=== PATIENT | female | born 1995 | race Caucasian/White ===

== ENCOUNTER 2016-07-16 14:41 | Emergency (ER) | payer OTHER ==
[2016-07-16 15:10] LABS: Appearance,Urine Cloudy (Clear); Bacteria,Urine Rare /hpf; Bilirubin,Urine Negative (Negative); Glucose,Urine (UA) Negative (Negative); Ketones,Urine Negative (Negative); Leukocyte Esterase,Urine Negative (Negative); Mucus,Urine Occasional /hpf; Nitrite,Urine Negative (Negative); PH, Urine 5.5 (5.0-8.0); Particle Count 4287; Protein,Urine Negative (Negative); RBC,Urine <1 /hpf (0-5); Specific Gravity,Urine 1.017 (1.001-1.035); Squamous Epithelial Cell,Urine 7 /hpf (0-4); UA Billing (MACRO vs. MICRO) MICRO; Urobilinogen,Urine <2.0 mg/dL (<2.0); WBC,Urine 1 /hpf (0-5)
--- NOTE | 2016-07-16 15:13 | ED ---
Abdominal Pain HPI - General Chief Complaint: Abdominal Pain Stated Complaint: abd pain (early ) Time Seen by Provider: 07/16/16 14:53 Source: patient, RN notes reviewed Mode of arrival: ambulatory Limitations: no limitations - History of Present Illness Initial Comments: 21-year-old female presented emergency Department chief complaint of positive test. Patient states that she took 3 tests at home and states that she started having some mild lower abdominal pain. Patient did admit to dysuria and urinary frequency. Denies any vaginal bleeding vaginal discharge. Patient states that her CABLE ENGINEER is Dr. Kirkland. Patient states that she recently had her implanon removed patient is A0. Patient denies any nausea, vomiting diarrhea constipation. Denies any other complaints. - Related Data Home Medications Medication Instructions Recorded Confirmed No Known Home Medications [No 01/11/15 07/16/16 Known Home Medications] Allergies Allergy/AdvReac Type Severity Reaction Status Date / Time No Known Allergies Allergy Verified 07/16/16 15:04 Review of Systems ROS Statement: Those systems with pertinent positive or pertinent negative responses have been documented in the HPI. ROS Other: All systems not noted in ROS Statement are negative. Past Medical History Past Medical History: No Reported History History of Any Multi-Drug Resistant Organisms: None Reported Past Surgical History: No Surgical Hx Reported Past Psychological History: No Psychological Hx Reported Smoking Status: Current every day smoker Past Alcohol Use History: None Reported Past Drug Use History: None Reported - Past Family History Mother Additional Family Medical History / Comment(s): degenerative disc disease in spine General Exam Limitations: no limitations General appearance: alert, in no apparent distress Respiratory exam: Present: normal lung sounds bilaterally. Absent: respiratory distress, wheezes, rales, rhonchi, stridor Cardiovascular Exam: Present: regular rate, normal rhythm, normal heart sounds. Absent: systolic murmur, diastolic murmur, rubs, gallop, clicks GI/Abdominal exam: Present: soft, tenderness (Minimal suprapubic), normal bowel sounds. Absent: distended, guarding, rebound, rigid Back exam: Absent: CVA tenderness (R), CVA tenderness (L) Neurological exam: Present: alert, oriented X3, CN II-XII intact Psychiatric exam: Present: normal affect, normal mood Course Vital Signs 07/16/16 14:49 Temperature 99.5 F Pulse Rate 96 Respiratory 16 Rate Blood Pressure 99/55 O2 Sat by Pulse 98 Oximetry Medical Decision Making - Medical Decision Making 21-year-old female presented emergency department for abdominal pain. Patient states she had positive at home. Patient's ultrasound shows no acute abnormality, there is gestational sac noted no some chronic bleed a heart rate this time. Patient follow-up with her CABLE ENGINEER Dr. Kirkland. Return parameters discussed. Urinalysis does not show any evidence of infection. Patient's abdomen is nontender at this time. - Lab Data Lab Results 07/16/16 07/16/16 Range/Units 15:00 15:00 Urine Color Yellow Urine Appearance Cloudy H (Clear) Urine pH 5.5 (5.0-8.0) Ur Specific [place] 1.017 (1.001-1.035) Urine Protein Negative (Negative) Urine Glucose (UA) Negative (Negative) Urine Ketones Negative (Negative) Urine Blood Negative (Negative) Urine Nitrite Negative (Negative) Urine Bilirubin Negative (Negative) Urine Urobilinogen <2.0 (<2.0) mg/dL Ur Leukocyte Esterase Negative (Negative) Urine RBC <1 (0-5) /hpf Urine WBC 1 (0-5) /hpf Ur Squamous Epith Cells 7 H (0-4) /hpf Urine Bacteria Rare H (None) /hpf Urine Mucus Occasional H (None) /hpf Urine HCG, Qual Detected (Not Detectd) Disposition Clinical Impression: Abdominal pain during Disposition: HOME SELF-CARE Condition: Stable Instructions: Abdominal Pain in (ED) Additional Instructions: Follow-up with your CABLE ENGINEER as discussed.Please return to the Emergency Department if symptoms worsen or any other concerns. Referrals: None,Stated [Primary Care Provider] - 1-2 days Steven Littlejohn DO [Doctor of Osteopathic Medicine] - 1-2 days Time of Disposition: 15:48
[2016-07-16 15:47] VITALS: BP 101/50; PULSE 94; RESP 18; TEMP 98.3
--- NOTE | 2016-07-16 16:06 | US ---
EXAMINATION TYPE: US OB <=14 wks transvag DATE OF EXAM: 07/16/2016 3:26 PM COMPARISON: No previous CLINICAL HISTORY: Pain. Right pelvic pain x 1 week EXAM PERFORMED: Transvaginal (TV) and Transabdominal (TA) endovaginal scanning performed for better evaluation of the uterus, grayscale and color Doppler imaging performed. EXAM MEASUREMENTS: GESTATIONAL AGE / DATING Physician Established: Not established yet Dates by LMP: (6 weeks/5 days) EDC: 03/06/2017 Dates by First Scan: This is 1st scan Dates by Current Scan for: No pole seen at this time MATERNAL ANATOMY Uterus: 8.7 x 3.6 x 5.3cm, anteverted Right Ovary: 3.3 x 2.2 x 2.0cm Left Ovary: 3.7 x 2.2 x 1.9cm, 2.3 x 1.5 x 1.7cm cystic area Post CDS / Adnexa: free fluid in posterior cul-de-sac Presence of free fluid: yes Presence of corpus luteal cyst: not seen at this time Presence of subchorionic bleed: 1.4 x 0.5 x 1.6cm hypoechoic area superior to gestational sac GESTATION / SURVEY No pole seen at this time MSD: 0.7cm Yolk Sac (normal less than 6mm): 1.6mm Date of LMP: 05/30/2016 Beta HcG (if available): Not available at time of exam No pole seen at this time, 0.7cm gestational sac-like structure within fundal portion of endome trium with what appears to be a yolk sac within, 1.6cm hypoechoic area superior to gestational sac, p robable subchorionic bleed, free fluid within posterior cul-de-sac IMPRESSION: Findings may represent an early gestation, there is a subchorionic hemorrhage suspected. Consider shantel rt interval follow-up. Left ovarian cyst, some free fluid in the pelvis
== END 2016-07-16 16:05 | disposition home or self-care (01) ==
LOC: EC 14:41
DX: O26.891 Other specified pregnancy related conditions, first trimester (principal); O99.331 Smoking (tobacco) complicating pregnancy, first trimester; R10.30 Lower abdominal pain, unspecified; R30.0 Dysuria; F17.200 Nicotine dependence, unspecified, uncomplicated; Z3A.00 Weeks of gestation of pregnancy not specified
CPT/HCPCS: 76801; 76817; 81001; 81025; 99284

== ENCOUNTER → 2016-10-14 | Outpatient (CLI) | payer OTHER ==
[2016-10-14 16:22] LABS: CH 30.7; CHCM 33.4; HCT 36.1 % (34.0-46.0); HDW 2.01; HGB 12.2 gm/dL (11.4-16.0); MCH 31.4 pg (25.0-35.0); MCHC 33.9 g/dL (31.0-37.0); MCV 92.5 fL (80.0-100.0); Mean Platelet Volume 7.6; RDW 13.7 % (11.5-15.5); WBC 11.1 k/uL (3.8-10.6)
[2016-10-14 16:35] LABS: Glucose 81 mg/dL (74-99); Non-African American GFR(MDRD) >60 (>60 ml/min/1.73 sqM)
[2016-10-14 17:07] LABS: Hepatitis B Surface Ag Index 0.05
[2016-10-15 01:04] LABS: Treponemal Ab Non-Reactive (Non-Reactive)
[2016-10-15 06:39] LABS: Toxoplasma Antibody (IgG) <3.0 IU/mL (<7.2)
[2016-10-17 09:54] LABS: Alpha Fetoprotein 32.9 ng/mL; B-HCG (M.O.M.) 1.56; Gestational Age (days) 5; Inhibin A (M.O.M.) 1.37; Interpretation SeeBelow; Maternal Age at EDD (Yrs) 22; Smoker Yes; Unconjugated Estriol (M.O.M.) 1.47
== END ==
LOC: LABWHC1 15:48
PROVIDERS: ATTEND Obstetrics & Gynecology
DX: O26.812 Pregnancy related exhaustion and fatigue, second trimester (principal); Z3A.00 Weeks of gestation of pregnancy not specified
CPT/HCPCS: 36415; 82105; 82565; 82677; 82947; 84702; 85027; 86336; 86762; 86777; 86778; 86780; 86850; 86900; 86901; 87340; 87390

== ENCOUNTER → 2016-12-22 | Outpatient (CLI) | payer OTHER ==
[2016-12-22 17:14] LABS: CH 31.1; CHCM 31.5; HGB 11.8 gm/dL (11.4-16.0); MCH 31.8 pg (25.0-35.0); MCV 99.3 fL (80.0-100.0); Mean Platelet Volume 8.2; RBC 3.72 m/uL (3.80-5.40); RDW 12.6 % (11.5-15.5); WBC 16.9 k/uL (3.8-10.6)
== END | disposition home or self-care (01) ==
LOC: LABWHC1 12:34
PROVIDERS: ATTEND Obstetrics & Gynecology
DX: Z34.82 Encounter for supervision of other normal pregnancy, second trimester (principal); Z3A.00 Weeks of gestation of pregnancy not specified
CPT/HCPCS: 36415; 82950; 85027

== ENCOUNTER 2018-10-03 23:56 | Emergency (ER) | payer OTHER ==
[2018-10-04 00:07] VITALS: BP 121/76; PULSE 101; RESP 18; TEMP 98.6
[2018-10-04] MEDS ORDERED: IBUPROFEN 600 MG TAB PO STA (00:58)
[2018-10-04] MEDS ORDERED: ACET/COD 300 MG/30 MG STARTER PACK 6 TAB BTL PO STA (00:59)
--- NOTE | 2018-10-04 01:00 | ED ---
Upper Extremity HPI - General Chief Complaint: Extremity Injury, Upper Stated Complaint: Hand Injury Time Seen by Provider: 10/04/18 00:09 Source: patient Mode of arrival: ambulatory Limitations: no limitations - History of Present Illness Initial Comments: This patient is 23-year-old woman who presents to be evaluated for right hand pain and swelling. Patient states that tonight she punched a tree. She felt a popping feeling in then also noticed that she was having moderate swelling of the right hand. She has aching pain that is worse if she tries to move her hand. No weakness or numbness. She has noticed the pain is only minimally better if she older hand still. No previous surgery or injury. MD Complaint: Injury to:: right, hand -: hour(s) Handedness: right Place: outdoors Improves With: immobilization Worsens With: movement of extremity Context: direct blow Associated Symptoms: heard/felt popping sensat - Related Data Previous Rx's Medication Instructions Recorded Ibuprofen [Motrin] 600 mg PO Q6HR PRN #30 tab 03/16/17 Acetaminophen-Codeine 300-30mg 1 tab PO Q4H PRN #20 tablet 10/04/18 [Tylenol w/codeine #3] Allergies Allergy/AdvReac Type Severity Reaction Status Date / Time No Known Allergies Allergy Verified 10/04/18 00:07 Review of Systems ROS Statement: Those systems with pertinent positive or pertinent negative responses have been documented in the HPI. ROS Other: All systems not noted in ROS Statement are negative. Musculoskeletal: Reports: as per HPI, joint swelling, arthralgia Skin: Denies: lesions Neurological: Denies: weakness, numbness, paresthesias Past Medical History Past Medical History: No Reported History History of Any Multi-Drug Resistant Organisms: None Reported Past Surgical History: No Surgical Hx Reported Past Anesthesia/Blood Transfusion Reactions: No Reported Reaction Past Psychological History: Anxiety Smoking Status: Current every day smoker Past Alcohol Use History: None Reported Past Drug Use History: None Reported - Past Family History Mother Additional Family Medical History / Comment(s): degenerative disc disease in spine General Exam Limitations: no limitations General appearance: alert, in no apparent distress Cardiovascular Exam: Present: other (Radial and ulnar pulses are normal. Normal capillary refill throughout the right hand.) Right Elbow exam: Present: normal inspection, full ROM. Absent: tenderness, swelling Forearm Wrist exam: Present: normal inspection, full ROM. Absent: tenderness, swelling Hand Wrist exam: Present: tenderness, swelling, ecchymosis, deformity, other (There is soft tissue swelling over the fourth and fifth metacarpals. Tenderness of the fifth metacarpal and deformity.). Absent: abrasion, laceration, dislocation, erythema, amputation, nail avulsion, subungual hematoma Neuro motor exam: Present: wrist extension intact, thumb opposition intact, thumb IP flexion intact, thumb adduction intact, fingers 2-5 abduction intact Vascular: Present: normal capillary refill Neurological exam: Present: other (No sensory deficit or weakness throughout the right and). Absent: motor sensory deficit Skin exam: Present: warm, dry, intact, normal color. Absent: rash Course Vital Signs 10/04/18 00:04 Temperature 98.6 F Pulse Rate 101 H Respiratory 18 Rate Blood Pressure 121/76 O2 Sat by Pulse 98 Oximetry Procedures - Orthopedic Splinting/Casting Injury #1 Side: right Upper Extremity Injury Location: hand Upper Extremity Immobilizer: ulnar gutter Disposition Clinical Impression: Metacarpal bone fracture Disposition: HOME SELF-CARE Condition: Good Instructions (If sedation given, give patient instructions): Hand Fracture (ED) Prescriptions: Acetaminophen-Codeine 300-30mg [Tylenol w/codeine #3] 1 tab PO Q4H PRN #20 tablet PRN Reason: Pain Is patient prescribed a controlled substance at d/c from ED?: Yes When asked, does pt state using other controlled substances?: No If prescribed controlled substance>3 days was MAPS reviewed?: Prescribed <3 Days If opioid is for acute pain is fill amount 7 days or less?: Yes If Rx opioid, was Start Talking consent form obtained?: Yes Referrals: None,Stated [Primary Care Provider] - 1-2 days Jae Galdamez, DO [Medical Doctor] - 1-2 days
--- NOTE | 2018-10-04 01:23 | XR ---
EXAM: XR Right Hand Complete, 3 or More Views CLINICAL HISTORY: ITS.REASON XR Reason: Pain TECHNIQUE: Frontal, lateral and oblique views of the right hand. COMPARISON: None available FINDINGS: Bones/joints: Fracture involving distal fifth metacarpal with mild radial displacement and volar angulation of distal fracture fragment. No other fracture or dislocation. Soft tissues: No radiopaque foreign bodies. IMPRESSION: Mildly displaced and angulated fifth metacarpal fracture.
== END 2018-10-04 01:49 | disposition home or self-care (01) ==
LOC: EC 23:56
DX: S62.336A Displaced fracture of neck of fifth metacarpal bone, right hand, initial encounter for closed fracture (principal); F17.200 Nicotine dependence, unspecified, uncomplicated; W22.8XXA Striking against or struck by other objects, initial encounter
CPT/HCPCS: 99283

== ENCOUNTER 2019-04-26 12:10 | Emergency (ER) | payer OTHER ==
[2019-04-26] MEDS ORDERED: ACET/COD 300 MG/30 MG STARTER PACK 6 TAB BTL PO STA (12:56)
[2019-04-26] MEDS ORDERED: KETOROLAC 30 MG/ML 1 ML VIAL IM STA (12:56)
--- NOTE | 2019-04-26 13:01 | ED ---
General Adult HPI - General Chief complaint: Dental/Oral Stated complaint: Tooth pain Time Seen by Provider: 04/26/19 12:37 Source: patient, RN notes reviewed Mode of arrival: ambulatory Limitations: no limitations - History of Present Illness Initial comments: 24-year-old female without any significant past medical history presents to the emergency department for a chief complaint of dental pain. This started a couple days ago. Patient states that she has not seen a dentist. States she does not follow with a dentist at this time. Patient denies fevers or chills. Patient denies any ALLERGIES. Denies any swelling under the tongue. Denies any trismus or difficulty swallowing. Denies neck pain or stiffness.Patient has no other complaints at this time including shortness of breath, chest pain, abdominal pain, nausea or vomiting, headache, or visual changes. - Related Data Previous Rx's Medication Instructions Recorded Ibuprofen [Motrin] 600 mg PO Q6HR PRN #30 tab 03/16/17 Acetaminophen-Codeine 300-30mg 1 tab PO Q4H PRN #20 tablet 10/04/18 [Tylenol w/codeine #3] Penicillin V Potassium [Pen Vee K] 500 mg PO Q6H 10 Days #40 tablet 04/26/19 Allergies Allergy/AdvReac Type Severity Reaction Status Date / Time No Known Allergies Allergy Verified 04/26/19 12:11 Review of Systems ROS Statement: Those systems with pertinent positive or pertinent negative responses have been documented in the HPI. ROS Other: All systems not noted in ROS Statement are negative. Past Medical History Past Medical History: No Reported History History of Any Multi-Drug Resistant Organisms: None Reported Past Surgical History: No Surgical Hx Reported Past Anesthesia/Blood Transfusion Reactions: No Reported Reaction Past Psychological History: Anxiety Smoking Status: Current every day smoker Past Alcohol Use History: None Reported Past Drug Use History: None Reported - Past Family History Mother Additional Family Medical History / Comment(s): degenerative disc disease in spine General Exam Limitations: no limitations General appearance: alert, in no apparent distress Head exam: Present: atraumatic, normocephalic, normal inspection Eye exam: Present: normal appearance, PERRL, EOMI. Absent: scleral icterus, conjunctival injection, periorbital swelling ENT exam: Present: normal exam, mucous membranes moist, TM's normal bilaterally, normal external ear exam. Absent: normal oropharynx (fracture of tooth 16, no dental abscess present), other (no sublingual edema) Neck exam: Present: normal inspection, full ROM. Absent: tenderness, meningismus, lymphadenopathy Respiratory exam: Present: normal lung sounds bilaterally. Absent: respiratory distress, wheezes, rales, rhonchi, stridor Cardiovascular Exam: Present: regular rate, normal rhythm, normal heart sounds. Absent: systolic murmur, diastolic murmur, rubs, gallop, clicks Neurological exam: Present: alert Course Vital Signs 04/26/19 12:11 Temperature 98.6 F Pulse Rate 114 H Respiratory 18 Rate Blood Pressure 115/59 O2 Sat by Pulse 99 Oximetry Medical Decision Making - Medical Decision Making Patient has had dental pain for the past 3 days. There is a fracture of tooth 16. Generally poor dentition. There is no edema or erythema noted of the right face. There is no dental abscess palpated. Vitals are stable and patient is afebrile. Patient requesting something for pain. Patient will follow up with a dentist in 1-2 days. She will return here if he has any worsening symptoms. Disposition Clinical Impression: Pain, dental Disposition: HOME SELF-CARE Condition: Good Instructions (If sedation given, give patient instructions): Toothache (ED) Additional Instructions: Take Motrin and Tylenol for pain. If pain is severe take Tylenol 3. Do not drive or operate machinery while taking Tylenol 3. Take antibiotic as directed. Follow up with dentist in 1-2 days or return if you have any worsening symptoms. [facility] Address: [address] [place] [address] Prescriptions: Penicillin V Potassium [Pen Vee K] 500 mg PO Q6H 10 Days #40 tablet Is patient prescribed a controlled substance at d/c from ED?: No Referrals: Ross Funez MD [REFERRING] - 1-2 days Time of Disposition: 12:59
[2019-04-26 13:14] VITALS: BP 118/61; PULSE 96; RESP 20; TEMP 98.4
== END 2019-04-26 13:13 | disposition home or self-care (01) ==
LOC: EC 12:10
DX: S02.5XXA Fracture of tooth (traumatic), initial encounter for closed fracture (principal); F17.200 Nicotine dependence, unspecified, uncomplicated; X58.XXXA Exposure to other specified factors, initial encounter
CPT/HCPCS: 99283; 96372; J1885

== ENCOUNTER 2019-05-09 16:13 | Emergency (ER) | payer OTHER ==
[2019-05-09 16:23] VITALS: TEMP 98.5
[2019-05-09 17:27] VITALS: RESP 20
[2019-05-09 17:48] LABS: Appearance,Urine Cloudy (Clear); Bilirubin,Urine Negative (Negative); Blood,Urine Negative (Negative); Color,Urine Yellow; Glucose,Urine (UA) Negative (Negative); Ketones,Urine Negative (Negative); Leukocyte Esterase,Urine Negative (Negative); Mucus,Urine Occasional /hpf; Nitrite,Urine Negative (Negative); PH, Urine 5.5 (5.0-8.0); Protein,Urine Negative (Negative); RBC,Urine <1 /hpf (0-5); Specific Gravity,Urine 1.022 (1.001-1.035); Squamous Epithelial Cell,Urine 8 /hpf (0-4); Urobilinogen,Urine <2.0 mg/dL (<2.0); WBC,Urine 1 /hpf (0-5)
--- NOTE | 2019-05-09 18:38 | ED ---
Abdominal Pain HPI - General Chief Complaint: Abdominal Pain Stated Complaint: Abd pain Time Seen by Provider: 05/09/19 16:29 Source: patient, RN notes reviewed, old records reviewed Mode of arrival: ambulatory Limitations: no limitations - History of Present Illness Initial Comments: Patient is a [age] female presents emergency department today with some lower abdominal cramping. She states that she is one week late for her menstrual cycle is concern for possible . Patient denies any vaginal discharge. She denies any concern for STD. Patient states that she's had no fevers or chills nausea or vomiting. - Related Data Previous Rx's Medication Instructions Recorded Ibuprofen [Motrin] 600 mg PO Q6HR PRN #30 tab 03/16/17 Acetaminophen-Codeine 300-30mg 1 tab PO Q4H PRN #20 tablet 10/04/18 [Tylenol w/codeine #3] Penicillin V Potassium [Pen Vee K] 500 mg PO Q6H 10 Days #40 tablet 04/26/19 Allergies Allergy/AdvReac Type Severity Reaction Status Date / Time No Known Allergies Allergy Verified 04/26/19 12:11 Review of Systems ROS Statement: Those systems with pertinent positive or pertinent negative responses have been documented in the HPI. ROS Other: All systems not noted in ROS Statement are negative. Past Medical History Past Medical History: No Reported History History of Any Multi-Drug Resistant Organisms: None Reported Past Surgical History: No Surgical Hx Reported Past Anesthesia/Blood Transfusion Reactions: No Reported Reaction Past Psychological History: Anxiety Smoking Status: Current every day smoker Past Alcohol Use History: None Reported Past Drug Use History: None Reported - Past Family History Mother Additional Family Medical History / Comment(s): degenerative disc disease in spine General Exam - General Exam Comments Initial Comments: 24-year-old female. Alert and oriented. No significant distress. General: Well appearing, well nourished, in no distress. Oriented x 3, normal mood and affect . Ambulating without difficulty. Skin: Good turgor, no rash, unusual bruising or prominent lesions Hair: Normal texture and distribution. HEENT: Head: Normocephalic, atraumatic, no visible or palpable masses, depressions, or scaring. Eyes: Visual acuity intact, conjunctiva clear, sclera non-icteric, EOM intact, PERRL. Ears: EACs clear, TMs translucent & cone of light visualized. hearing intact. Nose: No external lesions, mucosa non-inflamed, septum and turbinates normal Mouth: Mucous membranes moist, no mucosal lesions. Teeth/Gums: No obvious caries or periodontal disease. No gingival inflammation or significant resorption. Pharynx: Mucosa non-inflamed, no tonsillar hypertrophy or exudate Neck: Supple, without lesions, bruits, or adenopathy, thyroid non-enlarged and non-tender Heart: No cardiomegaly or thrills; regular rate and rhythm, no murmur or gallop Lungs: Clear to auscultation and percussion Abdomen: Bowel sounds normal, no tenderness, organomegaly, masses, or hernia Back: Spine normal without deformity or tenderness, no CVA tenderness Extremities: No amputations or deformities, cyanosis, edema or varicosities, peripheral pulses intact Musculoskeletal: Normal gait and station. No misalignment, asymmetry, crepitation, defects, tenderness, masses, effusions, decreased range of motion, instability, atrophy or abnormal strength or tone in the head, neck, spine, ribs, pelvis or extremities. Neurologic: CN 2-12 normal. Sensation to pain, touch, and proprioception normal. DTRs normal in upper and lower extremities. No pathologic reflexes. Pelvic: Vagina and cervix without lesions or discharge. Uterus and adnexa/parametria nontender without masses. Limitations: no limitations Course Vital Signs 05/09/19 05/09/19 05/09/19 16:20 16:22 17:22 Temperature 98.5 F Pulse Rate 123 H 95 Respiratory 18 20 20 Rate Blood Pressure 115/78 118/80 O2 Sat by Pulse 98 99 Oximetry 05/09/19 05/09/19 18:22 18:49 Temperature Pulse Rate 89 Respiratory 20 20 Rate Blood Pressure 120/79 O2 Sat by Pulse 99 Oximetry Medical Decision Making - Medical Decision Making 24-year-old female presents today for lower abdominal pain, one week late for her menstrual periods concern for . Pelvic exam is unremarkable. Patient has no significant abdominal tenderness. Patient's hCG levels are n egative tested and negative. Discussed will still test for STDs and Patient can follow-up with her [employer]PER[employer]. She has some upcoming appointment in 2 weeks to discuss starting on control. Discussed the importance of this and safe sex practices. - Lab Data Lab Results 05/09/19 05/09/19 05/09/19 Range/Units 17:18 17:18 17:18 HCG, Quant mIU/mL Urine Color Yellow Urine Appearance Cloudy H (Clear) Urine pH 5.5 (5.0-8.0) Ur Specific [place] 1.022 (1.001-1.035) Urine Protein Negative (Negative) Urine Glucose (UA) Negative (Negative) Urine Ketones Negative (Negative) Urine Blood Negative (Negative) Urine Nitrite Negative (Negative) Urine Bilirubin Negative (Negative) Urine Urobilinogen <2.0 (<2.0) mg/dL Ur Leukocyte Esterase Negative (Negative) Urine RBC <1 (0-5) /hpf Urine WBC 1 (0-5) /hpf Ur Squamous Epith Cells 8 H (0-4) /hpf Urine Mucus Occasional H (None) /hpf Urine HCG, Qual Not Detected (Not Detectd) Trichomonas Ag (Rapid) Negative (Negative) 05/09/19 Range/Units 17:18 HCG, Quant <2.4 mIU/mL Urine Color Urine Appearance (Clear) Urine pH (5.0-8.0) Ur Specific [place] (1.001-1.035) Urine Protein (Negative) Urine Glucose (UA) (Negative) Urine Ketones (Negative) Urine Blood (Negative) Urine Nitrite (Negative) Urine Bilirubin (Negative) Urine Urobilinogen (<2.0) mg/dL Ur Leukocyte Esterase (Negative) Urine RBC (0-5) /hpf Urine WBC (0-5) /hpf Ur Squamous Epith Cells (0-4) /hpf Urine Mucus (None) /hpf Urine HCG, Qual (Not Detectd) Trichomonas Ag (Rapid) (Negative) Disposition Clinical Impression: Not currently , Abdominal pain Disposition: HOME SELF-CARE Condition: Good Instructions (If sedation given, give patient instructions): Abdominal Pain (ED) Additional Instructions: Please use medication as discussed as Motrin or Tylenol for pain. Follow-up with [employer].. Please follow up with family doctor if symptoms have not improved over the next two days. Please return to the emergency room if your symptoms i ncrease or worsen or for any other concerns. Is patient prescribed a controlled substance at d/c from ED?: No Referrals: None,Stated [Primary Care Provider] - 1-2 days Time of Disposition: 18:38
[2019-05-09 18:48] VITALS: BP 120/79; PULSE 89
[2019-05-11 09:19] LABS: C. trachomatis,PCR Negative (Neg,Equiv); Chlamydia trachomatis Source Vagina
[2019-05-11 09:22] LABS: N. gonorrhoeae,PCR Negative (Neg,Equiv); Neisseria Source Vagina
== END 2019-05-09 18:50 | disposition home or self-care (01) ==
LOC: EC 16:13
DX: R10.30 Lower abdominal pain, unspecified (principal); F17.200 Nicotine dependence, unspecified, uncomplicated
CPT/HCPCS: 36415; 81001; 81025; 84702; 87070; 87491; 87591; 87808; 99284

== ENCOUNTER → 2019-07-10 | Outpatient (CLI) | payer OTHER | END | disposition home or self-care (01) | LOC: LABWHC1 11:40 | PROVIDERS: ATTEND Obstetrics & Gynecology | DX: O00.90 Unspecified ectopic pregnancy without intrauterine pregnancy (principal) | CPT/HCPCS: 36415; 84702 ==

== ENCOUNTER → 2019-07-12 | Outpatient (CLI) | payer OTHER | END | disposition home or self-care (01) | LOC: LABMAIN 12:21 | PROVIDERS: ATTEND Obstetrics & Gynecology | DX: O20.0 Threatened abortion (principal) | CPT/HCPCS: 36415; 84702 ==

== ENCOUNTER → 2019-07-15 | Outpatient (CLI) | payer OTHER | END | disposition home or self-care (01) | LOC: LABWHC1 11:07 | PROVIDERS: ATTEND Obstetrics & Gynecology | DX: O00.90 Unspecified ectopic pregnancy without intrauterine pregnancy (principal) | CPT/HCPCS: 36415; 84702 ==

== ENCOUNTER 2020-06-29 17:10 | Emergency (ER) | payer OTHER ==
--- NOTE | 2020-06-29 18:06 | ED ---
Medical Decision Making - Medical Decision Making Medical screening exam: 25-year-old female presents to the emergency department for right great toe pain. Patient has had worsening redness and drainage from the lateral portion of the medial lateral toe. Patient was pressing on the toe and there was some drainage of pus. Patient is on control she does not think she is . She is In the emergency department because she has a friend that had an infection of the toe that became a bone infection. On physical exam patient has erythema and redness to the right lateral toe with mild drainage, site is tender to palpation. (Camron De Jesus) Disposition Is patient prescribed a controlled substance at d/c from ED?: No Clinical Impression: Chronic hip pain, Paronychia Disposition: HOME SELF-CARE Condition: Good Instructions (If sedation given, give patient instructions): Paronychia (ED) Additional Instructions: Please take antibiotic as directed. Do warm soapy soaks. If symptoms are worsening return to the emergency room. Otherwise follow-up with primary care. Follow up with orthopedics for your hip pain, take Motrin and Tylenol. Prescriptions: Sulfamethox-Tmp 800-160Mg [Bactrim DS 800-160 mg] 1 tab PO Q12HR #20 tab Cephalexin [Keflex] 500 mg PO Q6HR 10 Days #40 cap Referrals: Jt Arriaga DO [Doctor of Osteopathic Medicine] - 1-2 days Jose Alberto Bowens [STAFF PHYSICIAN] - 1-2 days
[2020-06-29 18:07] VITALS: BP 129/88; PULSE 101; RESP 16; TEMP 98.9
--- NOTE | 2020-06-29 18:56 | XR ---
EXAMINATION TYPE: XR Hip Complete RT DATE OF EXAM: 06/29/2020 COMPARISON: NONE HISTORY: Right hip pain TECHNIQUE: 2 views FINDINGS: I see no fracture nor dislocation. Joint spaces are normal. There is no sign of hip dysplas ia. Sacroiliac joint is intact. IMPRESSION: Negative right hip exam.
--- NOTE | 2020-06-29 18:58 | XR ---
EXAMINATION TYPE: XR toes RT DATE OF EXAM: 06/29/2020 COMPARISON: NONE HISTORY: Swelling and drainage. TECHNIQUE: 3 views FINDINGS: I see no fracture nor dislocation. Joint spaces are fairly normal. There are no erosions. IMPRESSION: Negative right big toe exam. No focal bone destruction.
[2020-06-29] MEDS ORDERED: SULFAMETH-TMP DS STARTER PACK 2 TAB BTL PO STA (19:39)
[2020-06-29] MEDS ORDERED: LIDOCAINE 1% INJ 10MG/ML (20 ML MDV) SQ ONE (19:39)
[2020-06-29] MEDS ORDERED: CEPHALEXIN 500MG STARTER PACK 4 CAP BTL PO STA (19:39)
[2020-06-29] MEDS ORDERED: KETOROLAC 15 MG/ML 1 ML VIAL IVP STA (19:40)
--- NOTE | 2020-06-29 19:52 | ED ---
General Adult HPI - General Chief complaint: Extremity Injury, Lower Stated complaint: Toe pain Time Seen by Provider: 06/29/20 19:34 Source: patient, RN notes reviewed Mode of arrival: ambulatory Limitations: no limitations - History of Present Illness Initial comments: 25-year-old female presents to the emergency room for a chief complaint of right great toe drainage. Patient reports this started a couple days ago. States that it is worse on the medial aspect of the right great toe. States that she noticed drainage from that area. Patient states it is very tender to press on the medial aspect. Patient also relates of right hip pain 60 years. Patient states she fell down stairs to 6 years ago and her right hip has been hurting ever since. States the past 2 months have been worse. Patient is requesting Toradol. Patient denies any bladder or bowel changes, saddle anesthesia, weakness of the legs, or pain radiating down the legs. Denies fevers. Patient states she is able to walk on the right hip.Patient has no other complaints at this time including shortness of breath, chest pain, abdominal pain, nausea or vomiting, headache, or visual changes. - Related Data Previous Rx's Medication Instructions Recorded Ibuprofen [Motrin] 600 mg PO Q6HR PRN #30 tab 03/16/17 Acetaminophen-Codeine 300-30mg 1 tab PO Q4H PRN #20 tablet 10/04/18 [Tylenol w/codeine #3] Penicillin V Potassium [Pen Vee K] 500 mg PO Q6H 10 Days #40 tablet 04/26/19 Cephalexin [Keflex] 500 mg PO Q6HR 10 Days #40 cap 06/29/20 Sulfamethox-Tmp 800-160Mg [Bactrim 1 tab PO Q12HR #20 tab 06/29/20 DS 800-160 mg] Allergies Allergy/AdvReac Type Severity Reaction Status Date / Time No Known Allergies Allergy Verified 06/29/20 18:07 Review of Systems ROS Statement: Those systems with pertinent positive or pertinent negative responses have been documented in the HPI. ROS Other: All systems not noted in ROS Statement are negative. Past Medical History Past Medical History: No Reported History History of Any Multi-Drug Resistant Organisms: None Reported Past Surgical History: No Surgical Hx Reported Past Anesthesia/Blood Transfusion Reactions: No Reported Reaction Past Psychological History: Anxiety Smoking Status: Vaper Past Alcohol Use History: None Reported Past Drug Use History: None Reported - Past Family History Mother Additional Family Medical History / Comment(s): degenerative disc disease in spine General Exam - General Exam Comments Initial Comments: Patient has 90 flexion of the right hip with extension to a new 4 position. DP pulse 2+. Capillary refill less than 2 seconds. No erythema or edema of the right hip. Patient also has edema and erythema and tenderness of the right great toe worse along the medial aspect of the nail fold. There is purulent drainage slightly in this area. plantar aspect of the great toe is soft, no e vidence of felon. Limitations: no limitations General appearance: alert, in no apparent distress Head exam: Present: atraumatic, normocephalic, normal inspection Eye exam: Present: normal appearance, PERRL, EOMI. Absent: scleral icterus, conjunctival injection, periorbital swelling ENT exam: Present: normal exam, mucous membranes moist Neck exam: Present: normal inspection, full ROM. Absent: tenderness, meningismus, lymphadenopathy Respiratory exam: Present: normal lung sounds bilaterally. Absent: respiratory distress, wheezes, rales, rhonchi, stridor Cardiovascular Exam: Present: regular rate, normal rhythm, normal heart sounds. Absent: systolic murmur, diastolic murmur, rubs, gallop, clicks GI/Abdominal exam: Present: soft, normal bowel sounds. Absent: distended, tenderness, guarding, rebound, rigid Course Vital Signs 06/29/20 18:03 Temperature 98.9 F Pulse Rate 101 H Respiratory 16 Rate Blood Pressure 129/88 O2 Sat by Pulse 98 Oximetry Procedures - Incision & Drainage Consent Obtained: verbal consent Indication: paronychia Site: other (toe) Anesthetic Used: lidocaine 1% Amount (mLs): 3 I&D Cleaning Method: Chloroprep Sterile Field Used?: Yes Scalpel Used: #11 (18G) I&D Drainage Obtained: Pus, Blood Patient Tolerated Procedure: well, no complications Medical Decision Making - Medical Decision Making X-ray of the toe and hip are negative. Patient does have evidence of paronychia. Patient adamantly denies any chance of . Patient requesting Toradol for this pain, this was given to her. I did incise and drain the right great toe. Minimal purulent drainage, some blood. Patient was started on Keflex and Bactrim. Discussed doing warm soapy soaks. Discussed follow-up with primary care. If she has worsening symptoms batista ch as streaking redness she will return to the emergency room. Disposition Clinical Impression: Chronic hip pain, Paronychia Disposition: HOME SELF-CARE Condition: Good Instructions (If sedation given, give patient instructions): Paronychia (ED) Additional Instructions: Please take antibiotic as directed. Do warm soapy soaks. If symptoms are worsening return to the emergency room. Otherwise follow-up with primary care. Follow up with orthopedics for your hip pain, take Motrin and Tylenol. Prescriptions: Sulfamethox-Tmp 800-160Mg [Bactrim DS 800-160 mg] 1 tab PO Q12HR #20 tab Cephalexin [Keflex] 500 mg PO Q6HR 10 Days #40 cap Is patient prescribed a controlled substance at d/c from ED?: No Referrals: Jt Arriaga DO [Doctor of Osteopathic Medicine] - 1-2 days Jose Alberto Bowens [STAFF PHYSICIAN] - 1-2 days Time of Disposition: 19:49
== END 2020-06-29 21:12 | disposition home or self-care (01) ==
LOC: EC 17:10
DX: L03.031 Cellulitis of right toe (principal); G89.29 Other chronic pain; M25.551 Pain in right hip; F17.210 Nicotine dependence, cigarettes, uncomplicated; F41.9 Anxiety disorder, unspecified
CPT/HCPCS: 73502; 73660; 99283; 96374; 10060; J2001; J1885

== ENCOUNTER 2020-11-05 11:53 | Emergency (ER) | payer OTHER ==
[2020-11-05] MEDS ORDERED: IBUPROFEN 600 MG TAB PO STA (12:01)
[2020-11-05] MEDS ORDERED: ACETAMINOPHEN TAB 500 MG TAB PO STA (12:01)
--- NOTE | 2020-11-05 12:20 | ED ---
General Adult HPI - General Chief complaint: Upper Respiratory Infection Stated complaint: Covid sypmtoms Time Seen by Provider: 11/05/20 12:00 Source: patient Mode of arrival: ambulatory Limitations: no limitations - History of Present Illness Initial comments: 25-year-old female presents to emergency Department with chief complaint of Covid symptoms. Patient reports she's been experiencing symptoms over the last 3 days which include sore throat, nonproductive cough, fevers and chills. States she has been taking Tylenol Motrin at home. Patient reports occasionally using a vape. States she was exposed to her was recently discharged from work due to having very similar symptoms. However, he has not been tested. She denies any nausea vomiting or diarrhea. She denies any chest pain. - Related Data Home Medications Medication Instructions Recorded Confirmed No Known Home Medications 11/05/20 11/05/20 Allergies Allergy/AdvReac Type Severity Reaction Status Date / Time No Known Allergies Allergy Verified 11/05/20 12:47 Review of Systems ROS Statement: Those systems with pertinent positive or pertinent negative responses have been documented in the HPI. ROS Other: All systems not noted in ROS Statement are negative. Past Medical History Past Medical History: No Reported History History of Any Multi-Drug Resistant Organisms: None Reported Past Surgical History: No Surgical Hx Reported Past Anesthesia/Blood Transfusion Reactions: No Reported Reaction Past Psychological History: Anxiety Smoking Status: Current every day smoker, Vaper Past Alcohol Use History: None Reported Past Drug Use History: None Reported - Past Family History Mother Additional Family Medical History / Comment(s): degenerative disc disease in spine General Exam Limitations: no limitations General appearance: alert, in no apparent distress Head exam: Present: atraumatic, normocephalic, normal inspection Eye exam: Present: normal appearance, PERRL, EOMI Pupils: Present: normal accommodation ENT exam: Present: normal exam, normal oropharynx, mucous membranes moist Neck exam: Present: normal inspection, full ROM. Absent: tenderness, lymphade nopathy Respiratory exam: Present: normal lung sounds bilaterally. Absent: respiratory distress Cardiovascular Exam: Present: regular rate, normal rhythm, normal heart sounds. Absent: systolic murmur Extremities exam: Present: normal inspection, full ROM, normal capillary refill. Absent: tenderness Back exam: Present: normal inspection, full ROM. Absent: tenderness Neurological exam: Present: alert, oriented X3 Psychiatric exam: Present: normal affect, normal mood Skin exam: Present: warm, dry, intact, normal color Course Vital Signs 11/05/20 11/05/20 11:56 12:20 Temperature 102.1 F H Pulse Rate 122 H Respiratory 20 20 Rate Blood Pressure 98/65 O2 Sat by Pulse 100 Oximetry Medical Decision Making - Medical Decision Making 25-year-old female presents to emergency Department with chief complaint of Covid symptoms. On physical examination, her lungs are clear to auscultation. She is febrile and tachycardic. She tested positive for Covid. X-rays are negative. Patient was given Tylenol and Motrin. This helped improve her symptoms. Patient was also given a monoclonal antibody. Patient was observed afterward. She feels comfortable to go home. Return parameters were discussed with patient is an attending agreeable. Covid protocol discussed. Case discussed with physician. - Lab Data Lab Results 11/05/20 Range/Units 12:16 Coronavirus (PCR) Detected A (Not Detectd) Disposition Clinical Impression: COVID-19 Disposition: HOME SELF-CARE Condition: Stable Instructions (If sedation given, give patient instructions): Coronavirus Disease 2019 (COVID-19) Additional Instructions: Follow covid Protocol. Return to emergency department if symptoms worsen. Is patient prescribed a controlled substance at d/c from ED?: No Referrals: None,Stated [Primary Care Provider] - 1-2 days Time of Disposition: 14:21
--- NOTE | 2020-11-05 12:50 | XR ---
EXAMINATION TYPE: XR chest 1V portable DATE OF EXAM: 11/05/2020 COMPARISON: Chest x-ray June 04, 2012 HISTORY: Cough and shortness of breath TECHNIQUE: Single frontal portable view of the chest is obtained. FINDINGS: There is no suspicious new focal air space opacity, pleural effusion, or pneumothorax seen . The cardiac silhouette size remains within normal limits. The osseous structures are intact. Jameel ateral metallic nipple ornaments are incidentally noted. IMPRESSION: No suspicious acute pulmonary process.
[2020-11-05] MEDS ORDERED: SODIUM CHLORIDE 0.9% 50 ML IVPB ONE (13:45)
[2020-11-05] MEDS ORDERED: CASIRIVIMAB (REGN10933) (EUA) 600 MG, IMDEVIMAB (REGN10987) (EUA) 600 MG in SODIUM CHLO... IVPB ONE (14:00)
[2020-11-05 14:27] VITALS: RESP 18; TEMP 99.3
[2020-11-05 15:47] VITALS: BP 138/84; PULSE 72
== END 2020-11-05 15:47 | disposition home or self-care (01) ==
LOC: EC 11:53
DX: U07.1 COVID-19 (principal); F17.290 Nicotine dependence, other tobacco product, uncomplicated
CPT/HCPCS: 71045; 87635; 96365; 99283

== ENCOUNTER → 2021-05-14 | Outpatient (CLI) | payer OTHER ==
--- NOTE | 2021-05-14 13:10 | US ---
EXAMINATION TYPE: Transabdominal DATE OF EXAM: 05/14/2021 12:48 PM COMPARISON: NONE CLINICAL HISTORY: Z36.89 confirm dates. and viability; ; smoker (vapes) EXAM PERFORMED: TA US EXAM MEASUREMENTS: GESTATIONAL AGE / DATING Physician Established: Not yet established Dates by LMP: LMP unknown Dates by First Scan: No previous here Dates by Current Scan for: gestational sac and yolk sac seen MATERNAL ANATOMY Uterus: 11.3 x 6.5 x 5.7cm Right Ovary: 3.0 x 2.8 x 1.0cm Left Ovary: 2.2 x 1.9 x 1.2cm Post CDS / Adnexa: wnl Presence of free fluid: no Presence of corpus luteal cyst: no Presence of subchorionic bleed: no GESTATION / SURVEY CRL: No pole is seen, only small hyperechoic focus in mid gestational sac is noted and may repr esent blighted ovum MSD: 3.9cm (9 weeks/4 days); irregular gestational sac appearance Yolk Sac (normal less than 6mm): 4.7mm Date of LMP: unknown Beta HcG (if available): NA, patient having blood work now after US Single, irregular gestational sac and yolk sac is seen = 9 weeks/ 4 days. IMPRESSION: 1. Irregular gestational sac place this gestation at an estimated 9 weeks 4 days. 2. pole and cardiac activity are not identified. Consider blighted ovum. Correlate with beta h CG.
== END | disposition home or self-care (01) ==
LOC: RADUSWWP 12:28
PROVIDERS: ATTEND Obstetrics & Gynecology
DX: O99.331 Smoking (tobacco) complicating pregnancy, first trimester (principal); Z3A.09 9 weeks gestation of pregnancy; F17.290 Nicotine dependence, other tobacco product, uncomplicated
CPT/HCPCS: 76801

== ENCOUNTER → 2021-06-01 | Outpatient (CLI) | payer OTHER | END | disposition home or self-care (01) | LOC: LABMAIN 16:51 | PROVIDERS: ATTEND Obstetrics & Gynecology | DX: Z53.9 Procedure and treatment not carried out, unspecified reason (principal) ==

== ENCOUNTER 2021-06-02 11:19 | Day surgery (SDC) | payer OTHER ==
[2021-06-01 09:24] VITALS: BMI 23.1
--- NOTE | 2021-06-01 12:57 | P.HPOB ---
History of Present Illness H&P Date: 06/01/21 Chief Complaint: Missed This patient is a pleasant 26 yr female estimated gestational age 9 weeks who presents for suction D&C due to persistent missed . Patient was initially seen at the end of April for care. She began having some bleeding and ultrasounds have show an intrauterine with no cardiac activity. She initially wanted to wait and have a spontaneous miscarriage, however despite several weeks this has not happened. She now is requesting D&C for treatment. Review of Systems Genitourinary: Reports as per HPI Past Medical History Past Medical History: No Reported History History of Any Multi-Drug Resistant Organisms: None Reported Past Surgical History: No Surgical Hx Reported Additional Past Surgical History / Comment(s): [place] teeth extracted. Past Anesthesia/Blood Transfusion Reactions: No Reported Reaction Past Psychological History: No Psychological Hx Reported Smoking Status: Current every day smoker, Vaper Past Alcohol Use History: None Reported Past Drug Use History: None Reported - Past Family History Mother Family Medical History: Musculoskeletal Disorder Additional Family Medical History / Comment(s): Degenerative disc disease in spine. Medications and Allergies Home Medications Medication Instructions Recorded Confirmed Type No Known Home Medications 11/05/20 06/01/21 History Allergies Allergy/AdvReac Type Severity Reaction Status Date / Time No Known Allergies Allergy Verified 06/01/21 10:33 Exam Intake and Output 05/31/21 06/01/21 06/01/21 22:59 06:59 14:59 Other: Weight 63.957 kg - OBG Physical Exam Abdomen: bowel sounds normal, no diffuse tenderness, no bruit present, no guarding noted, no hepatomegaly, no splenomegaly, no mass Vulva: both: normal Vagina: normal moisture, no discharge Results Blood type is Rh positive. Ultrasound shows a non-viable , 9 weeks. Assessment and Plan Assessment: This is a 26 yr female with ~9week missed requesting suction D&C for treatment. She and I discussed the procedure and risks: infection, bleeding, possible uterine perforation. All of her questions answered and a written consent obtained. (1) Missed Status: Acute Code(s): O02.1 - MISSED SNOMED Code(s): 98006592
[~2021-06-02 11:19] MED LIST: DEXAMETHASONE SOD PHOSPHATE 4 MG/ML 1 ML VIAL IV ONE; HYDROmorphone 0.5 MG/0.5 ML SYRINGE IVP PRN; LACTATED RINGERS 1,000 ML IV SCH; ONDANSETRON 4 MG/2 ML VIAL IVP ONE; Pre Op ABX Message 1 EACH MISC MISCELLANE ONE
[2021-06-02] MEDS ORDERED: PROPOFOL 10 MG/ML 20 ML VIAL IV ONE (12:13)
[2021-06-02] MEDS ORDERED: LIDOCAINE 1% INJ 10MG/ML (20 ML MDV) ONE (12:13)
[2021-06-02] MEDS ORDERED: KETOROLAC 15 MG/ML 1 ML VIAL ONE (12:13)
[2021-06-02] MEDS ORDERED: MIDAZOLAM 2 MG/2 ML VIAL ONE (12:13)
[2021-06-02] MEDS ORDERED: fentaNYL (PF) 50 MCG/ML 2 ML AMP ONE (12:13)
--- NOTE | 2021-06-02 12:59 | P.OP ---
Date of Procedure: 06/02/21 Preoperative Diagnosis: Missed 9 weeks Postoperative Diagnosis: Same Procedure(s) Performed: Suction D&C. Anesthesia: MAC Surgeon: Hal Benavides Estimated Blood Loss (ml): 600 Pathology: other (Uterine contents) Condition: stable Disposition: PACU Indications for Procedure: Please see dictated H&P for intimate details of this patient's admission. Brief summary this is a pleasant 26-year-old 4 para 2 female estimated gestational age approximately 9 weeks who's had serial ultrasounds showing nonviable consistent with 9 weeks. Patiently initially wanted to wait was carried on her own however despite prolonged waiting she is not passed any tissue. She's now requesting suction D&C for treatment. Patient understands risks of this procedure including risks of infection, bleeding, possible uterine perforation. All the patient's questions are answered written consent obtained Operative Findings: This patient had a large amount of products of conception. Description of Procedure: This patient is taken to the operating room where she is laid in the supine position. She subsequently undergoes general mask anesthesia without incident. With an adequate level of anesthesia she's placed in the dorsal lithotomy position. Examination under anesthesia shows a mid position uterus approximately 10 weeks size. She has a vaginal perineal prep and drape. The bladder is drained for 25 mL of clear urine. Weighted speculum was placed in the posterior vagina. Cervix is then grasped with an Allis clamp. Gentle dilation is done to allow a 8 curved suction curette easily and the uterine cavi ty. Immediately upon placing at there is brisk bleeding. Multiple passes are made and a generous amount of tissue is removed. I then gently place a curette into the uterine cavity and it feels like there is still tissue there are so I placed a 9 curved suction curette and again multiple passes are made and another large piece of tissue is removed. At this time a final gentle 4 quadrant curettage is done and no further tissue was noted and at this time the uterus firms up and the bleeding subsides. There was quite brisk bleeding throughout the procedure and estimated blood loss was approximately 600 mL. I'm confident however that all the tissue was removed. It just appears that she had a large amount of tissue in the uterine cavity. With this done, the Allis clamp and weighted speculum removed. All counts are correct 3. No complications. Patient is awakened from anesthesia and taken recovery room in satisfactory condition
[2021-06-02 13:00] VITALS: TEMP 98
[2021-06-02 13:43] VITALS: RESP 18
[2021-06-02] MEDS ORDERED: HYDROcodone/APAP 5-325MG 1 EACH TAB ONE (14:00)
[2021-06-02] MEDS ORDERED: HYDROcodone/APAP 5-325MG 1 EACH TAB PO ONE (14:01)
[2021-06-02 14:04] VITALS: BP 125/70; PULSE 89
== END 2021-06-02 14:31 | disposition home or self-care (01) ==
LOC: OR 11:19
PROVIDERS: ATTEND Obstetrics & Gynecology
DX: O02.1 Missed abortion (principal); F17.290 Nicotine dependence, other tobacco product, uncomplicated; Z82.69 Family history of other diseases of the musculoskeletal system and connective tissue; Z79.1 Long term (current) use of non-steroidal anti-inflammatories (NSAID)
CPT/HCPCS: 86900; 86901; 88305; 86850; 59820; J2250; J1100; J2405; J2001; J3010; J1885; J2704; J1170

== ENCOUNTER 2023-12-09 06:00 | Inpatient (IN) | payer OTHER ==
[2023-12-09] MEDS ORDERED: CARBOPROST TROMETHAMINE 250 MCG/ML 1 ML AMP IM PRN (06:30)
[2023-12-09] MEDS ORDERED: miSOPROStoL 200 MCG TAB RECTAL PRN (06:30)
[2023-12-09] MEDS ORDERED: LIDOCAINE 0.5% (PF) 5 MG/ML (50 ML SDV) SQ PRN (06:30)
[2023-12-09] MEDS ORDERED: TRANEXAMIC 1,000 MG/100ML-NACL 1,000 MG in EMPTY BAG 1 BAG IV PRN (06:30)
[2023-12-09] MEDS ORDERED: METHYLERGONOVINE 0.2 MG/ML 1 ML AMP IM PRN (06:30)
[2023-12-09] MEDS ORDERED: miSOPROStoL 200 MCG TAB PO PRN (06:30)
[2023-12-09] MEDS ORDERED: TERBUTALINE 1 MG/ML VIAL SQ PRN (06:30)
[2023-12-09] MEDS ORDERED: OXYTOCIN 10 UNIT/ML 1 ML VIAL IM PRN (06:30)
[2023-12-09] MEDS: LACTATED RINGERS 1,000 ML IV SCH (06:42)
[2023-12-09 07:07] LABS: Basophils # (A) 0.1 k/uL (0-0.2); Basophils % (A) 0 %; Eosinophils # (A) 0.1 k/uL (0-0.7); Eosinophils % (A) 1 %; HCT 37.3 % (34.0-46.0); HGB 12.2 gm/dL (11.4-16.0); Hypochromasia Slight; Lymphocytes # (A) 2.3 k/uL (1.0-4.8); Lymphocytes % (A) 21 %; MCHC 32.6 g/dL (31.0-37.0); MCV 88.8 fL (80.0-100.0); Mean Platelet Volume 9.2; Monocytes # (A) 0.5 k/uL (0-1.0); Monocytes % (A) 5 %; Neutrophils # (A) 7.7 k/uL (1.3-7.7); Neutrophils % (A) 71 %; Platelet Count 232 k/uL (150-450); RDW 14.5 % (11.5-15.5); WBC 10.8 k/uL (3.8-10.6)
[2023-12-09] MEDS: OXYTOCIN 30 UNITS/500 ML NS 30 UNIT in SALINE 1 500ML.BAG IV SCH (07:28)
--- NOTE | 2023-12-09 08:23 | P.HPOB ---
History of Present Illness H&P Date: 12/09/23 Chief Complaint: induction of labor Ms. Sánchez is a 28 year old at 39 weeks and 0 days with EDC of 12/16/2023 who presents for elective induction of labor. The has been complicated by limited care. The patient does live 1 hour away in the [facility]. The patient did have a recent growth US at 36 weeks with the fetus measuring average for gestational age and shown to be in cephalic presentation. Obstetric history: 3 FTVD, shoulder dystocia with last delivery with that baby being her largest at 9#7oz. 2 SABs. work-up: blood type O positive, antibody screen negative, rubella non- immune, VDRL non-reactive, HBsAg negative, HIV negative, HCV negative, gonorrhea negative, chlamydia negative, GBS negative, 1 hour GTT wnl. Past Medical History Past Medical History: No Reported History History of Any Multi-Drug Resistant Organisms: None Reported Past Surgical History: No Surgical Hx Reported Additional Past Surgical History / Comment(s): [place] teeth extracted, d&C Past Anesthesia/Blood Transfusion Reactions: No Reported Reaction Past Psychological History: No Psychological Hx Reported Smoking Status: Vaper Past Alcohol Use History: None Reported Past Drug Use History: None Reported Additional Drug Use History / Comment(s): hx suboxone use, stopped 2-3 months ago - Past Family History Mother Family Medical History: Hypertension, Musculoskeletal Disorder, Respiratory Disorder Additional Family Medical History / Comment(s): Degenerative disc disease in spine. Medications and Allergies Home Medications Medication Instructions Recorded Confirmed Type Vit No.179/Iron/Folic 1 tab PO DAILY 06/03/22 12/09/23 History [ Tablet] Allergies Allergy/AdvReac Type Severity Reaction Status Date / Time No Known Allergies Allergy Verified 06/03/22 14:27 Exam Vital Signs Temp Pulse Resp BP Pulse Ox 12/09/23 07:31 96.6 F L 110 H 16 139/82 98 Intake and Output 12/08/23 12/09/23 12/09/23 22:59 06:59 14:59 Other: Weight 74.389 kg 74.389 kg Focused physical exam is performed. This is a healthy-appearing in no apparent distress. Breathing is non-labored. Abdomen is gravid and non-tender. Cervical exam is 2 cm, 50 effacement, -3 station. AROM is undertaken with clear fluid noted. Extremities non-tender and non-edematous. heart tones are Category I and tocometer is graphing contractions every 2-4 minutes. Results Result Diagrams: 12/09/23 06:38 Abnormal Lab Results - Last 24 Hours (Table) 12/09/23 Range/Units 06:38 WBC 10.8 H (3.8-10.6) k/uL Assessment and Plan Assessment: 28 year old at 39 weeks gestation presenting for induction of labor Plan: Admit, clear liquid diet, pitocin per protocol, epidural prn, continuous EFM and tocometer. Anticipate vaginal delivery
[2023-12-09 08:38] LABS: Cocaine Screen,Urine Not Detected (NotDetected); Phencyclidine Screen,Urine Not Detected (NotDetected); Urn Cannabinoid Scrn Not Detected (NotDetected)
[2023-12-09 08:39] LABS: Amphetamine Screen,Urine Not Detected (NotDetected); Barbiturate Screen,Urine Not Detected (NotDetected); Benzodiazepines Screen,Urine Not Detected (NotDetected); Methadone Screen, Urine Not Detected (NotDetected); Opiate Screen,Urine Not Detected (NotDetected); Oxycodone Screen, Urine Not Detected (NotDetected); Tricyclic Antidepressant,Urine Not Detected (NotDetected)
[2023-12-09] MEDS ORDERED: ROPIVACAINE 5 MG/ML 30 ML VIAL ONE (12:31)
[2023-12-09] MEDS ORDERED: fentaNYL (PF) 50 MCG/ML 5 ML AMP ONE (12:31)
[2023-12-09] MEDS ORDERED: SODIUM CHLORIDE 0.9% 250 ML BAG ONE (12:31)
[2023-12-09] MEDS ORDERED: SIMETHICONE 80 MG CHEWABLE PO PRN (23:53)
[2023-12-09] MEDS ORDERED: diphenhydrAMINE 50 MG/ML 1 ML VIAL IVP PRN ×2 (23:53)
[2023-12-09] MEDS ORDERED: diphenhydrAMINE 25 MG CAP PO PRN (23:53)
[2023-12-09] MEDS ORDERED: LANOLIN CREAM 1 GM TUBE TOPICAL PRN (23:53)
[2023-12-09] MEDS ORDERED: diphenhydrAMINE 50 MG CAP PO PRN (23:53)
[2023-12-09] MEDS ORDERED: ZOLPIDEM 5 MG TAB PO PRN (23:53)
[2023-12-09] MEDS ORDERED: BENZOCAINE/MENTHOL SPRAY 1 GM/SPRAY AEROSOL TOPICAL PRN (23:53)
[2023-12-09] MEDS ORDERED: HYDROCORTISONE 2.5% RECTAL CREAM 30 GM TUBE RECTAL PRN (23:53)
--- NOTE | 2023-12-09 23:53 | P.PROBDLV ---
Vaginal Delivery Note - . Vaginal Delivery Note: DATE OF SERVICE: 12/09/2023 PROCEDURE: Normal Vaginal Delivery ATTENDING: Dr. Nikki Glez MD ESTIMATED BLOOD LOSS: 300 mL FINDINGS: VMI, Apgars 9/9. Weight 7 pounds and 8 ounces (3390 grams) PROCEDURE: Ms. Sánchez is a 28 year old at 39 weeks presenting to labor and delivery for elective induction of labor. The has been complicated by limited care and history of shoulder dystocia in a prior delivery. For further details, please review the admitting H&P. Pitocin was titrated per protocol. AROM was undertaken at 810 revealing clear amniotic fluid. The patient received epidural anesthesia per her request. The patient was completely dilated at 2012. The patient pushed effectively with Category I heart tones. A viable male was delivered at 2332. The infant was placed on the maternal abdomen and bulb suctioned. The infant was noted to be spontaneously crying. Cord was clamped and cut after a 60-second delay. The infant was handed off to the pediatric team. Placenta was delivered whole with gentle cord traction at 2336. Oxytocin was started to facilitate uterine tone. Uterine fundus was found to be firm and below the umbilicus upon fundal massage. Thorough examination of the cervix, vagina, periurethral area, and perineum revealed no lacerations. The bladder was drained for 300 mL of urine. The patient is stable and allowed to begin the bonding process.
[2023-12-09] MEDS: IBUPROFEN 600 MG TAB PO PRN (23:57)
[2023-12-10] MEDS: MEASLES-MUMPS-RUBELLA VACC/PF 12,500 UNIT/0.5 ML VIAL SQ ONE (01:29)
[2023-12-10 05:43] LABS: Basophils % (A) 0 %; Eosinophils % (A) 0 %; HCT 33.7 % (34.0-46.0); HGB 10.8 gm/dL (11.4-16.0); Hypochromasia Slight; Lymphocytes # (A) 1.5 k/uL (1.0-4.8); Lymphocytes % (A) 8 %; MCH 28.8 pg (25.0-35.0); Mean Platelet Volume 9.2; Monocytes # (A) 0.6 k/uL (0-1.0); Monocytes % (A) 3 %; Neutrophils # (A) 16.3 k/uL (1.3-7.7); Neutrophils % (A) 88 %; Platelet Count 216 k/uL (150-450); RBC 3.74 m/uL (3.80-5.40); RDW 14.8 % (11.5-15.5); WBC 18.7 k/uL (3.8-10.6)
[2023-12-10] MEDS: SENNOSIDES-DOCUSATE SODIUM 1 EACH TAB PO SCH (08:25)
--- NOTE | 2023-12-10 11:34 | P.DS ---
Providers Date of admission: 12/09/23 06:09 Expected date of discharge: 12/10/23 Attending physician: Nikki Glez MD Primary care physician: Stated None Hospital Course: Ms. Sánchez is a 28 year old now day #1 s/p normal vaginal delivery after induction of labor at 39 weeks. The patient is doing well this morning and had no acute events overnight. She has no complaints this morning. She reports minimal lochia, passing flatus, voiding without difficulty, ambulating, and eating/drinking without nausea or vomiting. Infant doing well at bedside, s/p circumcision. She denies chest pain, shortness of breathing, fevers, or chills overnight. She denies pain or swelling in the legs. restrictions are reviewed with the patient including pelvic rest for 6 weeks. The patient is encouraged to call the office if she experiences any heavy bleeding, foul-smelling discharge, breast complaints, or any if she has any other concerns. She will follow up in the office with in 6 weeks for exam. She will go home with prescriptions for Motrin and Tylenol as needed for pain. All questions are answered. Assessment: 28 year old now PPD#1 s/p Patient Condition at Discharge: Good Plan - Discharge Summary Discharge Rx Participant: No New Discharge Prescriptions: New Ibuprofen [Motrin] 600 mg PO Q6HR PRN #30 tab PRN Reason: Mild Pain (Scale 1 To 3) Acetaminophen Tab [Tylenol] 650 mg PO Q6H PRN #30 tab PRN Reason: Mild Pain (Scale 1 To 3) No Action Vit No.179/Iron/Folic [ Tablet] 1 tab PO DAILY Discharge Medication List Vit No.179/Iron/Folic [ Tablet] 1 tab PO DAILY 06/03/22 [History] Acetaminophen Tab [Tylenol] 650 mg PO Q6H PRN #30 tab 12/10/23 [Rx] Ibuprofen [Motrin] 600 mg PO Q6HR PRN #30 tab 12/10/23 [Rx] Follow up Appointment(s)/Referral(s): Nikki Glez MD [STAFF PHYSICIAN] - 6 Weeks Activity/Diet/Wound Care/Special Instructions: Instructions 1. Do not begin any exercise program for 3 weeks. 2. Do not resume sexual relations for 6 weeks or longer if uncomfortable. 3. You may take tub baths or showers at any time. 4. You may use tampons if desired after 6 weeks. 5. Keep any areas repaired with stitches clean and dry. 6. If you are not nursing, wear a good fitting, supportive bra during the day and limit fluid intake for at least 1 week to prevent breast engorgement. 7. Call the office, , within the next week to make appointment for your 6 week checkup if it has not already been made. 8. Report any of the following occurrences to the doctor promptly: a. Heavy, excessive bleeding b. Chills, fever c. Burning or frequency of urination d. Pain or redness and breasts if nursing e. Increasing pain or swelling of vulva (stitches). In addition to the above instructions, the following additional should be followed: 1. No heavy lifting or straining (exercising) until after 6 week checkup. 2. Keep abdominal incision clean and dry: You may wear a dressing if more comfortable. 3. Make office appointment for 2 weeks after delivery date. Discharge Disposition: HOME SELF-CARE
[2023-12-10] MEDS: ACETAMINOPHEN TAB 325 MG TAB PO PRN (13:12)
[2023-12-11 02:47] VITALS: RESP 18
[2023-12-11 07:41] VITALS: BP 113/73; PULSE 84; TEMP 98.4
== END 2023-12-11 12:40 | disposition home or self-care (01) | DRG 560 ==
LOC: 4FBP 06:09
PROVIDERS: ADMIT Obstetrics & Gynecology; ATTEND Obstetrics & Gynecology
PROC: 10E0XZZ Delivery of Products of Conception, External Approach (ICD-10-PCS; principal; 2023-12-09)
PROC: 10907ZC Drainage of Amniotic Fluid, Therapeutic from Products of Conception, Via Natural or Artificial Opening (ICD-10-PCS; 2023-12-09)
PROC: 3E033VJ Introduction of Other Hormone into Peripheral Vein, Percutaneous Approach (ICD-10-PCS; 2023-12-09)
PROC: 4A1HXCZ Monitoring of Products of Conception, Cardiac Rate, External Approach (ICD-10-PCS; 2023-12-09)
DX: O80 Encounter for full-term uncomplicated delivery (principal); Z37.0 Single live birth; Z3A.39 39 weeks gestation of pregnancy; Z82.49 Family history of ischemic heart disease and other diseases of the circulatory system; Z87.59 Personal history of other complications of pregnancy, childbirth and the puerperium